=== PATIENT | female | born 1955 | race Caucasian/White ===

== ENCOUNTER 2020-08-21 16:13 | Inpatient (IN) | payer BC ==
[2020-08-21 17:11] LABS: CORONAVIRUS COVID-19 NAA POSITIVE (NEGATIVE)
[2020-08-21] MEDS ORDERED: Albuterol HFA 18 Gm Inhaler INH PRN (17:17)
--- NOTE | 2020-08-21 17:28 | EDM.PDOC ---
ED HPI GENERAL MEDICAL PROBLEM - General Chief Complaint: Respiratory Problem Time Seen by Provider: 08/21/20 16:56 Source of Information: Reports: Patient - History of Present Illness INITIAL COMMENTS - FREE TEXT/NARRATIVE: Jenn is 64 y/o female who comes to the ER with SOB. She has bee ill for the last 10-14 days with headache, cough, body aches. The last 2 days she has been much more ill and SOB. Her is currently admitted here at [facility] with +COVID. She has taken acetaminophen, but not really anything else. Middle Back Pain Score (Numeric/FACES): 4 - Related Data Allergies Allergy/AdvReac Type Severity Reaction Status Date / Time sulfamethoxazole Allergy Mouth Sores Verified 08/21/20 16:34 [From Bactrim] trimethoprim [From Bactrim] Allergy Mouth Sores Verified 08/21/20 16:34 Home Meds: Home Meds Ondansetron [Zofran ODT] 4 mg PO Q6H PRN 08/21/20 [History] Sertraline HCl [Zoloft] 100 mg PO DAILY 08/21/20 [History] Past Medical History Psychiatric History: Reports: Depression - Infectious Disease History Infectious Disease History: Reports: Novel Coronavirus Social & Family History - Tobacco Use Tobacco Use Status *Q: Never Tobacco User ED ROS GENERAL - Review of Systems Review Of Systems: See Below Constitutional: Reports: Fever, Chills, Weakness HEENT: Reports: No Symptoms Respiratory: Reports: Shortness of Breath, Cough Cardiovascular: Reports: No Symptoms Endocrine: Reports: No Symptoms GI/Abdominal: Reports: No Symptoms : Reports: No Symptoms Musculoskeletal: Reports: Other (Body Aches) Skin: Reports: No Symptoms Neurological: Reports: No Symptoms, Change in Speech Hematologic/Lymphatic: Reports: No Symptoms Immunologic: Reports: No Symptoms ED EXAM, GENERAL - Physical Exam Exam: See Below General Appearance: Alert, WD/WN, No Apparent Distress (Adult female.) Eye Exam: Bilateral Eye: PERRL Ears: Normal External Exam, Normal Canal, Hearing Grossly Normal, Normal TMs Nose: Normal Inspection, Normal Mucosa Throat/Mouth: Normal Inspection, Normal Lips, Normal Voice Head: Atraumatic, Normocephalic Neck: Normal Inspection, Supple Respiratory/Chest: No Respiratory Distress, Lungs Clear, Chest Non-Tender, Other (Note occasional hacky cough) Cardiovascular: Normal Peripheral Pulses, Regular Rate, Rhythm, No Edema GI/Abdominal: Normal Bowel Sounds, Soft (Female) Exam: Deferred Rectal (Female) Exam: Deferred Back Exam: Normal Inspection Extremities: Normal Inspection, Normal Range of Motion, Joint Swelling Neurological: Alert, Oriented, CN II-XII Intact, No Motor/Sensory Deficits Psychiatric: Normal Affect Skin Exam: Warm, Dry, Intact, Normal Color Lymphatic: No Adenopathy Course - Vital Signs Text/Narrative:: 1655 The patient was seen by the MANAGER NEWS. Labs done. 1719 +COVID noted. Additional labs ordered. Patient requiring 3 liters of oxygen to keep her sats at 91-92%. Will plan to admit to Acute Car. Ezequiel Kennedy CNP notified and will assume care of patient up on admission. VItal stable at this time. Albuterol MDI 2 puffs ordered. See Admission orders oer Ezequiel Kennedy CNP. Last Recorded V/S: Last Vital Signs Temp 37.0 C 08/21/20 16:13 Pulse 85 08/21/20 16:13 Resp 18 08/21/20 16:13 BP 131/65 08/21/20 16:13 Pulse Ox 94 L 08/21/20 16:15 - Orders/Labs/Meds Orders: Active Orders 24 hr Category Date Time Status EKG Documentation Completion [RC] STAT Care 08/21/20 17:16 Ordered Chest 1V Frontal [CR] Stat Exams 08/21/20 17:18 Ordered C-REACTIVE PROTEIN [CHEM] Stat Lab 08/21/20 17:16 Ordered CBC WITH AUTO DIFF [HEME] Stat Lab 08/21/20 17:16 Ordered COMPREHENSIVE METABOLIC PN,CMP [CHEM] Stat Lab 08/21/20 17:16 Ordered CULTURE BLOOD [BC] Stat Lab 08/21/20 17:16 Ordered D-DIMER QUANTITATIVE [COAG] Stat Lab 08/21/20 17:16 Ordered INR,PT,PROTHROMBIN TIME [COAG] Stat Lab 08/21/20 17:16 Ordered LACTATE SEPSIS W/ REFLEX [CHEM] Stat Lab 08/21/20 17:16 Ordered PTT,PARTIAL THROMBOPLSTIN TIME [COAG] Stat Lab 08/21/20 17:16 Ordered Albuterol [Ventolin HFA] Med 08/21/20 17:17 Ordered See Dose Instructions INH Q4H PRN Lactated Ringers @ 100 MLS/HR(1,000ml) Med 08/21/20 17:30 Ordered Lactated Ringers [Ringers, Lactated] 1,000 ml IV ASDIRECTED Sodium Chloride 0.9% [Saline Flush] Med 08/21/20 17:17 Ordered 10 ml FLUSH ASDIRECTED PRN Saline Lock Insert [OM.PC] Stat Oth 08/21/20 17:16 Ordered Medication Orders Albuterol (Albuterol Hfa 18 Gm Inhaler) 0 gm INH Q4H PRN PRN Reason: Shortness of Breath Lactated Ringer's (Ringers, Lactated) 1,000 mls @ 100 mls/hr IV ASDIRECTED JUSTYN Sodium Chloride (Sodium Chloride 0.9% 10 Ml Syringe) 10 ml FLUSH ASDIRECTED PRN PRN Reason: Keep Vein Open Labs: Laboratory Tests 08/21/20 Range/Units 16:27 Influenza Type A RNA Negative (NEGATIVE) Influenza Type B RNA Negative (NEGATIVE) SARS-CoV-2 RNA ([place]) Positive H (NEGATIVE) Meds: Medications Generic Name Dose Route Start Last Admin Trade Name Freq PRN Reason Stop Dose Admin Albuterol 0 gm 08/21/20 17:17 Albuterol Hfa 18 Gm Inhaler INH Q4H PRN Shortness of Breath Lactated Ringer's 1,000 mls @ 100 mls/hr 08/21/20 17:30 Ringers, Lactated IV ASDIRECTED JUSTYN Sodium Chloride 10 ml 08/21/20 17:17 Sodium Chloride 0.9% 10 Ml Syringe FLUSH ASDIRECTED PRN Keep Vein Open Departure - Departure Time of Disposition: 17:31 Disposition: Admitted As Inpatient 66 Condition: Good Clinical Impression: SARS-CoV-2 positive, Hypoxia - Discharge Information Sepsis Event Note (ED) - Evaluation Sepsis Screening Result: No Definite Risk - Focused Exam Vital Signs: Vital Signs Temp Pulse Resp BP Pulse Ox Pulse Ox 08/21/20 16:15 94 L 08/21/20 16:13 37.0 C 85 18 131/65 84 L - My Orders Last 24 Hours: My Active Orders 08/21/20 17:16 EKG Documentation Completion [RC] STAT C-REACTIVE PROTEIN [CHEM] Stat CBC WITH AUTO DIFF [HEME] Stat COMPREHENSIVE METABOLIC PN,CMP [CHEM] Stat CULTURE BLOOD [BC] Stat D-DIMER QUANTITATIVE [COAG] Stat INR,PT,PROTHROMBIN TIME [COAG] Stat LACTATE SEPSIS W/ REFLEX [CHEM] Stat PTT,PARTIAL THROMBOPLSTIN TIME [COAG] Stat Saline Lock Insert [OM.PC] Stat 08/21/20 17:17 Albuterol [Ventolin HFA] See Dose Instructions INH Q4H PRN Sodium Chloride 0.9% [Saline Flush] 10 ml FLUSH ASDIRECTED PRN 08/21/20 17:18 Chest 1V Frontal [CR] Stat 08/21/20 17:30 Lactated Ringers @ 100 MLS/HR(1,000ml) Lactated Ringers [Ringers, Lactated] 1,000 ml IV ASDIRECTED - Assessment/Plan Last 24 Hours: My Active Orders 08/21/20 17:16 EKG Documentation Completion [RC] STAT C-REACTIVE PROTEIN [CHEM] Stat CBC WITH AUTO DIFF [HEME] Stat COMPREHENSIVE METABOLIC PN,CMP [CHEM] Stat CULTURE BLOOD [BC] Stat D-DIMER QUANTITATIVE [COAG] Stat INR,PT,PROTHROMBIN TIME [COAG] Stat LACTATE SEPSIS W/ REFLEX [CHEM] Stat PTT,PARTIAL THROMBOPLSTIN TIME [COAG] Stat Saline Lock Insert [OM.PC] Stat 08/21/20 17:17 Albuterol [Ventolin HFA] See Dose Instructions INH Q4H PRN Sodium Chloride 0.9% [Saline Flush] 10 ml FLUSH ASDIRECTED PRN 08/21/20 17:18 Chest 1V Frontal [CR] Stat 08/21/20 17:30 Lactated Ringers @ 100 MLS/HR(1,000ml) Lactated Ringers [Ringers, Lactated] 1,000 ml IV ASDIRECTED Assessment:: 1)SARs-COVID19 Positive 2)Hypoxia Plan: -Admit to Acute Care, Ezequiel Kennedy CNP to admit patient
[2020-08-21] MEDS ORDERED: Lactated Ringers 1,000 ML IV SCH (17:30)
[2020-08-21 17:58] LABS: CHLORIDE,CL 105 mmol/L (98-107); SODIUM,NA 141 mmol/L (136-145)
[2020-08-21] MEDS ORDERED: Dexamethasone 4 MG/ML SDV IVPUSH SCH (18:00)
--- NOTE | 2020-08-21 18:01 | CR ---
[id number] RAD/RAD Chest PA or AP 1V EXAM: SINGLE VIEW CHEST. INDICATION: COVID SHORTNESS OF BREATH COMPARISON: NO PREVIOUS SIMILAR EXAM IS AVAILABLE FINDINGS: Extensive bilateral infiltrates are seen The cardiomediastinal contour is moderately enlarged IMPRESSION: EXTENSIVE BILATERAL PNEUMONIA Collin Whitaker MD 08/21/20 3802 Thank you for allowing us to participate in the care of your patient.
[2020-08-21 18:04] LABS: ANION GAP 14.8 mmol/L (5-15)
[2020-08-21] MEDS ORDERED: Ondansetron 4 MG/2 ML SDV IVPUSH PRN (18:40)
[2020-08-21] MEDS ORDERED: REMDESIVIR 100 MG in Sodium Chloride 0.9% 100 ML IV SCH (18:45)
[2020-08-21] MEDS ORDERED: Albuterol/Ipratropium 3.0-0.5 MG/3 ML Neb Soln NEB PRN (18:46)
[2020-08-21] MEDS ORDERED: Magnesium Hydroxide 400 MG/5 ML Susp 30 ML Cup PO PRN (18:46)
[2020-08-21] MEDS ORDERED: Polyethylene Glycol 3350 Powder 17 GM Packet PO PRN (18:46)
[2020-08-21] MEDS ORDERED: REMDESIVIR 200 MG in Sodium Chloride 0.9% 250 ML IV ONE (18:57)
[2020-08-21] MEDS: ALPRAZolam 0.5 MG Tab PO PRN (20:05)
[2020-08-21] MEDS: Enoxaparin 40 MG/0.4 ML Syringe SUBCUT SCH (20:17)
--- NOTE | 2020-08-21 21:24 | HP ---
CHIEF COMPLAINT: Shortness of breath. HISTORY OF PRESENT ILLNESS: This is a 64-year-old female patient with a past medical history of depression and anxiety, state that she started having body aches and chills a little over a week ago. The patient states over the past 2 days, she developed shortness of breath and significant fatigue. The patient has been in contact with another individual who was positive for COVID-19. The patient has not been vaccinated for COVID-19. The patient states she brought herself to the emergency room at [facility] today for further evaluation and care. The patient states she has only taken acetaminophen at home which has really not helped for her symptoms. The patient states she has been trying to stay well hydrated. However, she has been also feeling very nauseated. In the emergency room, the patient did test positive for COVID-19. On admission to the ER, the patient's oxygen saturation was 84% on room air. The patient was started on oxygen. The patient had a chest x-ray completed as well as IV fluid started. PAST MEDICAL HISTORY: Depression. PAST SURGICAL HISTORY: Denies. FAMILY HISTORY: Noncontributory. SOCIAL HISTORY: The patient does not smoke cigarettes. The patient denies any alcohol use. The patient does not use any illegal drugs. The patient is currently . The patient states she does try to exercise on a daily basis. REVIEW OF SYSTEMS: Constitutional: Chills and weakness. No fevers. Respiratory: Shortness of breath with dry cough. Cardiovascular: The patient states she has pain in her mid back that radiates to the chest wall. No palpitations. No leg swelling. Abdomen: The patient complains of nausea, but no vomiting. No diarrhea. The patient denies any abdominal pain. Extremities: No edema. Neurologic: Negative. Skin: Negative. PHYSICAL EXAMINATION: Vital Signs: Temperature 99.5, pulse 77, blood pressure 139/62, respiratory rate 17, and oxygen saturation 92% on 3 L. Respiratory: Lungs are diminished throughout and coarse. No wheezing. Cardiovascular: Regular rate and rhythm. No murmur. Abdomen: Soft and nontender. Bowel sounds are hypoactive x4. No hepatosplenomegaly. Extremities: No edema. Neurologic: The patient is alert. The patient does not appear to be in any acute distress. No focal neurological deficits. General: The patient is alert. The patient does not appear to be in any acute distress. The patient is cooperative. LABORATORY WORK: 1. CBC: White blood cell count 4.6, hemoglobin 11.1, hematocrit 31.9, and platelets 197,000. 2. PT/INR 10.8/1.0. 3. APTT 31.0. 4. D-dimer 1.05. 5. BMP: Sodium 141, potassium 3.8, chloride 105, CO2 of 25, anion gap 14.8, BUN 22, creatinine 1.0, GFR 56, glucose 116, calcium 8.7, bilirubin 0.5, AST 41, ALT 29, alkaline phosphatase 52, protein 7.0, and albumin 2.9. 6. Lactic acid 0.7. 7. Ferritin 1128. 8. LDH 368. 9. Troponin 8. 10.CK 34. Imaging studies: Chest x-ray shows extensive bilateral lower lobe pneumonia. ASSESSMENT: 1. Acute respiratory failure with hypoxia secondary to COVID-19. 2. Viral pneumonia secondary to COVID-19. 3. Major depressive disorder, recurrent, mild episode. 4. Clinical dehydration. PLAN: This is a 64-year-old female patient with a past medical history of depression admitted to the acute care floor at [facility] for the above diagnoses. We will stop IV fluids from the ER. The patient will be started on Remdesivir IV as well as Decadron IV given her extensive pneumonia and nausea. We discussed cough and deep breathing exercises, incentive spirometry. The patient will also be started on vitamin D, vitamin C, and zinc. We will wean oxygen for saturation 90% or greater. The patient's daughter, Vani, was updated with the patient's current status. The patient wishes to be a full code. The patient does not wish to be transferred to a higher level of care should the need arise. Recheck laboratory work tomorrow morning. TB: 08/21/2020 20:53:21 MODL: 08/21/2020 21:14:50 /[id number]
[2020-08-22] MEDS: Vitamin B Complex Tab PO SCH (08:18)
[2020-08-22] MEDS: Ascorbic Acid 500 MG Tab PO SCH (08:18)
[2020-08-22] MEDS: Cholecalciferol (Vitamin D3) 25 MCG Tab PO SCH (08:18)
[2020-08-22] MEDS: Sertraline 100 MG Tab PO SCH (08:18)
[2020-08-22] MEDS: Zinc Sulfate 220 MG Cap PO SCH (08:18)
[2020-08-22] MEDS: Sodium Chloride 0.9% 10 ML Syringe FLUSH PRN (08:21)
[2020-08-22 08:28] LABS: CHLORIDE,CL 107 mmol/L (98-107); SODIUM,NA 142 mmol/L (136-145)
[2020-08-22] MEDS: Acetaminophen 325 MG Tab PO PRN ×2 (12:02→20:40)
--- NOTE | 2020-08-22 12:06 | PN ---
Progress Note for RACHAEL COLVIN Date: 08/22/2020 Room #: [facility] CHIEF COMPLAINT: Shortness of breath. SUBJECTIVE: Hospital day #2 for a 64-year-old female patient who was admitted yesterday for significant COVID-19 pneumonia, shortness of breath, and fatigue. The patient states she is not feeling any better today in regard to her fatigue, however, she states her shortness of breath seems to be improving. The patient states she has an intermittent dry cough. She continues to complain of chest discomfort with deep breathing. The patient denies any headaches, dizziness, or lightheadedness. The patient has not had any palpitations. No leg swelling. The patient denies any fevers or chills. No abdominal pain. The patient denies any nausea, vomiting, or diarrhea. The patient is trying to stay well hydrated with good p.o. fluid intake. OBJECTIVE: Vital Signs: Temperature 99.4, pulse 74, blood pressure 129/76, respiratory rate 16, oxygen saturation 93% on 3 L. Skin: Intact, warm, and dry. Respiratory: Lungs are decreased throughout and coarse. No wheezing. Cardiovascular: Regular rate and rhythm. No murmur. Abdomen: Soft, nontender. Bowel sounds are hypoactive x4. Extremities: No edema. Neurological: The patient is alert. The patient is not in any acute distress. No focal neurological deficits. LABORATORY STUDIES: 1. CBC: White blood cell count 2.9, hemoglobin 10.7, hematocrit 31.3, platelet count 212. 2. CMP: Sodium 142, potassium 4.0, chloride 107, CO2 of 23, anion gap 16.0, BUN 19, creatinine 0.8, GFR greater than 60, glucose 141, calcium 8.8, AST 35, ALT 27, alkaline phosphatase 49, protein 6.8, albumin 2.6. 3. Urinalysis does not show any UTI. ASSESSMENT: 1. Acute respiratory failure with hypoxia secondary to COVID-19. 2. Viral pneumonia secondary to COVID-19. 3. Major depressive disorder, recurrent, mild episode. 4. Clinical dehydration. PLAN: 64-year-old female patient was admitted with a past medical history of depression. Admitted to the acute care floor at [facility] for the above diagnosis. Continue on IV Remdesivir and IV dexamethasone given the extensive pneumonia. Encourage the patient to ambulate in the room. Continue all other medications the same. The patient is a code 1. The patient does not wish to transfer to a higher level of care should the need arise. Recheck laboratory work tomorrow morning. TB: 08/22/2020 10:42:19 MODL: 08/22/2020 11:56:59 /[id number] MTDD
[2020-08-22] MEDS ORDERED: Dexamethasone 4 MG/ML SDV IVPUSH SCH (20:00)
[2020-08-22] MEDS: Enoxaparin 40 MG/0.4 ML Syringe SUBCUT SCH (20:43)
[2020-08-22] MEDS: REMDESIVIR 100 MG in Sodium Chloride 0.9% 100 ML IV SCH (20:46)
[2020-08-23 07:28] LABS: CHLORIDE,CL 108 mmol/L (98-107); SODIUM,NA 144 mmol/L (136-145)
[2020-08-23 07:39] LABS: ANION GAP 15.3 mmol/L (5-15)
[2020-08-23] MEDS: Sertraline 100 MG Tab PO SCH (08:37)
[2020-08-23] MEDS: Zinc Sulfate 220 MG Cap PO SCH (08:37)
[2020-08-23] MEDS: Ascorbic Acid 500 MG Tab PO SCH (08:37)
[2020-08-23] MEDS: Cholecalciferol (Vitamin D3) 25 MCG Tab PO SCH (08:37)
[2020-08-23] MEDS: Vitamin B Complex Tab PO SCH (08:37)
--- NOTE | 2020-08-23 10:17 | PN ---
Progress Note for RACHAEL COLVIN Date: 08/23/2020 Room #: VM.209 SUBJECTIVE: This is hospital day #3 on a 64-year-old admitted with a coronavirus disease 2019 infection and pneumonia. The patient had been sick a couple of weeks, probably likely in mid July with chills and aches. They came and went, and then her got hospitalized with coronavirus disease 2019 and pancreatitis. He has been in the hospital it sounds like about 6 days, then the patient over the weekend began having chest and back pain, and shortness of breath. Came into the ER for evaluation. Chest x-ray was consistent with a coronavirus disease 2019 pneumonia. The patient still has some back pain but is not having chest pain. She was placed on oxygen and her breathing is better. She was given Remdesivir and dexamethasone, and vitamins and Lovenox. Oxygen requirements did go up to 5 L, but are back down to 4 today. She is not having any vomiting. No diarrhea. She has been eating 50% to 100% of her meals. She did get some IV fluids. OBJECTIVE: Vital Signs: Her temperature 97.1, pulse 61, blood pressure 121/59, respiratory rate 16, O2 of 97% on 4 L. Her T-max during her stay was 99.5. General: She is in no acute distress. Heart: Regular rate and rhythm. S1, S2 without murmur. Lungs: Sounds are decreased throughout with rhonchi, but no expiratory wheezes. Abdomen: Nondistended, nontender. Extremities: Warm, dry. No edema. Mental Status: Alert and orientated x3. LABORATORY DATA: Lab work today did show her white count at 4.6; hemoglobin 11.2, stable; platelets 252. Sodium 144, potassium 4.3, chloride 108, bicarb 25, BUN 27, creatinine 0.9, glucose 142, calcium 8.9. ASSESSMENT: 1. Coronavirus disease 2019 pneumonia. 2. Acute hypoxic respiratory failure secondary to coronavirus disease 2019 pneumonia. 3. History of depression. 4. Dehydration, resolved. 5. Severe hyperlipidemia, not currently on treatments. PLAN: The patient will continue acute cares with the IV Remdesivir. She is completing day 3/5 today. She will continue IV dexamethasone, but I will move it up to the afternoon instead of bedtime as it interferes with sleep. Given her prolonged illness, I will start her on IV Rocephin for secondary bacterial infections. We will continue oxygen weaning as able. She will be on continuous pulse oximetry for this and also telemetry. I did encourage her to do prone positioning to be up and moving in the room and doing her incentive spirometry. We will discontinue IV fluids. No lab work will need to be repeated tomorrow. Anticipate that the patient will likely be inpatient until she finishes Remdesivir on . We will see how she does each day. She is aware that she may have to go home on oxygen. MKA: 08/23/2020 08:34:14 MODL: 08/23/2020 10:10:31 /[id number]
[2020-08-23] MEDS: cefTRIAXone 1 GM Vial IVPUSH SCH (10:41)
[2020-08-23] MEDS: Dexamethasone 4 MG/ML SDV IVPUSH SCH (15:09)
[2020-08-23] MEDS: Sodium Chloride 0.9% 10 ML Syringe FLUSH PRN (20:07)
[2020-08-23] MEDS: REMDESIVIR 100 MG in Sodium Chloride 0.9% 100 ML IV SCH (20:08)
[2020-08-23] MEDS: Enoxaparin 40 MG/0.4 ML Syringe SUBCUT SCH (20:12)
[2020-08-23] MEDS: Acetaminophen 325 MG Tab PO PRN (21:46)
[2020-08-23] MEDS: ALPRAZolam 0.5 MG Tab PO PRN (21:47)
[2020-08-24] MEDS: Dexamethasone 4 MG/ML SDV IVPUSH SCH ×2 (08:13→11:26)
[2020-08-24] MEDS: cefTRIAXone 1 GM Vial IVPUSH SCH (08:14)
[2020-08-24] MEDS: Vitamin B Complex Tab PO SCH (08:15)
[2020-08-24] MEDS: Zinc Sulfate 220 MG Cap PO SCH (08:15)
[2020-08-24] MEDS: Cholecalciferol (Vitamin D3) 25 MCG Tab PO SCH (08:16)
[2020-08-24] MEDS: Ascorbic Acid 500 MG Tab PO SCH (08:16)
[2020-08-24] MEDS: Sertraline 100 MG Tab PO SCH (08:17)
--- NOTE | 2020-08-24 08:34 | PCM.EKG ---
#1 Interpretation EKG Date: 08/22/20 Time: 16:00 Rhythm: NSR Rate (Beats/Min): 67 [place]: Normal P-Wave: Present QRS: Normal ST-T: Normal QT: Normal TX/PQ Interval: 0.13 Comparison: No Change EKG Interpretation Comments: NSR; No ST-T changes
--- NOTE | 2020-08-24 19:33 | PN ---
Progress Note for RACHAEL COLVIN Date: 08/24/2020 Room #: VM.209 SUBJECTIVE: This is hospital day #4 on a 64-year-old admitted with a COVID-19 infection and pneumonia. She had been sick a couple of weeks previously. She feels like she has improved over the last 24 hours. She is still coughing some, but her breathing is better. She is down to 3 L. She has been up in her room and using the bathroom. She has not had any diarrhea. She has been eating well. She has been afebrile. She was started on IV Rocephin yesterday for possible secondary infection. OBJECTIVE: Vital Signs: Her oxygen was 94 on 3 L, 97 on 4 L this morning; temp 99 which is her T-max in 24 hours; pulse 62; blood pressure 128/72; respiratory rate 18. General: She is in no acute distress. Heart: Regular rate and rhythm. S1, S2 without murmur. Lungs: Lung sounds are clear to auscultation throughout on the left lung. Her right lung has some faint crackles, but no expiratory wheezing. Abdomen: Nondistended, nontender. Extremities: Warm and dry. No edema. Mental Status: Alert and orientated x3. ASSESSMENT AND PLAN: 1. Coronavirus disease 2019 pneumonia, acute hypoxic respiratory failure secondary to coronavirus disease 2019 pneumonia. 2. Concern for secondary bacterial infection due to prolonged illness, on day #2 of IV Rocephin. 3. History of depression. 4. Mild dehydration, resolved. 5. Severe hyperlipidemia, not currently on treatment. The patient will continue acute care. She will complete day #5 of remdesivir today. She will continue IV dexamethasone. We will move the dose up to this morning. It did not seem to improve her sleep last night to move into the afternoon. We will continue the IV Rocephin. We will continue to wean oxygen as able. She will be on incentive spirometry. Again, encouraged proning for her respiration. She has not used any nebulizers, but clinically she has no chronic lung disease prior to this. For DVT prophylaxis, she is on the Lovenox. Did discuss with her the potential for outpatient followup with Pulmonary at some point. Even though she is clinically improving, she will likely need a chest CT. MKA: 08/24/2020 09:55:39 MODL: 08/24/2020 19:26:40 /[id number]
[2020-08-24] MEDS: REMDESIVIR 100 MG in Sodium Chloride 0.9% 100 ML IV SCH (20:18)
[2020-08-24] MEDS: Sodium Chloride 0.9% 10 ML Syringe FLUSH PRN (20:18)
[2020-08-24] MEDS: Enoxaparin 40 MG/0.4 ML Syringe SUBCUT SCH (20:20)
[2020-08-24] MEDS: ALPRAZolam 0.5 MG Tab PO PRN (22:15)
[2020-08-24] MEDS: Acetaminophen 325 MG Tab PO PRN (22:15)
[2020-08-25] MEDS: Vitamin B Complex Tab PO SCH (08:11)
[2020-08-25] MEDS: cefTRIAXone 1 GM Vial IVPUSH SCH (08:11)
[2020-08-25] MEDS: Sertraline 100 MG Tab PO SCH (08:11)
[2020-08-25] MEDS: Zinc Sulfate 220 MG Cap PO SCH (08:11)
[2020-08-25] MEDS: Cholecalciferol (Vitamin D3) 25 MCG Tab PO SCH (08:11)
[2020-08-25] MEDS: Ascorbic Acid 500 MG Tab PO SCH (08:11)
[2020-08-25] MEDS: Sodium Chloride 0.9% 10 ML Syringe FLUSH PRN (08:13)
[2020-08-25] MEDS ORDERED: Iopamidol 612 MG/ML 100 ML Bottle IVPUSH ONE (09:18)
[2020-08-25] MEDS: Dexamethasone 4 MG/ML SDV IVPUSH SCH (10:47)
[2020-08-25] MEDS ORDERED: REMDESIVIR 100 MG in Sodium Chloride 0.9% 100 ML IV SCH (12:00)
--- NOTE | 2020-08-25 15:55 | DISCH ---
PRIMARY DISCHARGE DIAGNOSES: 1. COVID-19 pneumonia. 2. Acute hypoxic respiratory failure secondary to COVID-19 pneumonia. 3. Concern for secondary bacterial infection, on IV Rocephin day #3. 4. History of depression. 5. Mild dehydration due to acute illness, resolved. 6. Severe hyperlipidemia, not currently on any treatments. REASON FOR ADMISSION: On the date of admission, this 64-year-old female who had video visits through the clinic and had reported some symptoms on and off COVID from around 08/12/2020. Her had already been admitted and unfortunately her condition continued to worsen to the point where she was having difficulty breathing and she came in and was admitted. Chest x-ray was showing bilateral infiltrates consistent with COVID pneumonia, and she was requiring up to 5 L of oxygen. The patient was started on IV remdesivir as well as IV Decadron and the COVID vitamins and her condition did gradually improve, especially yesterday, she felt like she was really turning the corner. Oxygen had been weaned down to 3 L and now 2 L today. The patient states she still gets very winded in her room like trying to go to the bathroom, but she was doing that with her oxygen off, so her concerns for being home are which is limited endurance and trying to also care for her who is recovering as well. The patient had no fevers in the last 24 hours. She was tolerating a diet. She was having bowel movements. DISCHARGE PHYSICAL EXAMINATION: Vital Signs: Discharging vitals, temperature 98.9, pulse 68, blood pressure 130/60, respiratory rate 18, and O2 of 93% on 2 L. The patient was actually 87 on room air at rest and 86 on room air with walking. She went up to 88 on 1 L with walking and up to 92 on 2 L with walking and even at rest. Heart: Regular rate and rhythm without murmur. Lungs: Lung sounds were clear to auscultation through the left lung. She had some mild crackles in the right base. No expiratory wheezing. She never used any nebs. Abdomen: Nondistended, nontender. Extremities: Warm and dry. No edema. No calf tenderness. Mental Status: Alert and orientated x3. Skin: She was not pale. Psychiatric: She was not depressed or anxious. DISCHARGE PLANS AND INSTRUCTIONS: The patient will follow up with myself in the clinic on 09/08/2020 for post-hospital followup. No lab work is due. She will be home on 2 L at all times. She will have her home COVID monitoring kit through [facility]. Cough and deep breathing encouraged. She did have a CT chest done prior to discharge with results pending. She will be on Ceftin twice daily for another 3 days starting tomorrow. She completed her remdesivir, her dexamethasone will be oral 6 mg daily for 5 more days, and baby aspirin 81 mg daily with food for 2 weeks if she can tolerate it to prevent blood clots. The patient was treated with Lovenox for DVT prophylaxis while she was here. LABORATORY DATA: Discharging labs did show her hemoglobin at 10.8, which was stable; white count 6.4; platelets 238. Sodium 146, potassium 4, chloride 111, BUN 24, creatinine 1, bicarb 26, calcium 8.4. Greater than 30 minutes spent on this discharge process. MKA: 08/25/2020 15:05:46 MODL: 08/25/2020 15:45:26 /[id number]
--- NOTE | 2020-08-25 16:23 | CT ---
[id number] CT/CTA Chest Exam: CTA Chest Clinical Data: HYPOXIA COMPARISON: CORRELATION IS MADE WITH THE CHEST RADIOGRAPH OF AUGUST 21, 2020 FINDINGS: Extensive bilateral infiltrates consistent with pneumonia are seen There are no pulmonary emboli There is no mediastinal mass or adenopathy IMPRESSION: NO PULMONARY EMBOLI EXTENSIVE PNEUMONIA Collin Whitaker MD 08/25/20 [phone] Thank you for allowing us to participate in the care of your patient.
== END 2020-08-25 15:45 | disposition home or self-care (01) | DRG 137 ==
LOC: VM.ED 16:13 → VM.MS 17:28
PROVIDERS: ADMIT Nurse Practitioner Family; ATTEND Internal Medicine
PROC: 8E0ZXY6 Isolation (ICD-10-PCS; principal; 2020-08-21)
PROC: XW033E5 Introduction of Remdesivir Anti-infective into Peripheral Vein, Percutaneous Approach, New Technology Group 5 (ICD-10-PCS; 2020-08-21)
DX: U07.1 COVID-19 (principal); J12.82 Pneumonia due to coronavirus disease 2019; J96.01 Acute respiratory failure with hypoxia; E86.0 Dehydration; E78.5 Hyperlipidemia, unspecified; F41.9 Anxiety disorder, unspecified; F33.0 Major depressive disorder, recurrent, mild; Z88.2 Allergy status to sulfonamides; Z88.1 Allergy status to other antibiotic agents; Z79.899 Other long term (current) drug therapy
CPT/HCPCS: 0240U; 36415; 71045; 71275; 80048; 80053; 81001; 82248; 82550; 82728; 83605; 83615; 84145; 84484; 85025; 85379; 85610; 85730; 86140; 87040; 93005; 99284; 99285-25; A9270-GY; J0696; J1100; J1650; J7050; J7120; Q9967

== ENCOUNTER 2023-06-14 11:55 | Emergency (ER) | payer MEDICARE, OTHER ==
[2023-06-14] MEDS: Sodium Chloride 0.9% 1,000 ML IV SCH (12:34)
[2023-06-14] MEDS: cefTRIAXone 1 GM Vial IVPUSH ONE (12:34)
[2023-06-14] MEDS: Metoclopramide 10 MG/2 ML SDV IVPUSH ONE (12:34)
== END 2023-06-14 13:34 | disposition home or self-care (01) ==
LOC: VM.ED 11:55
DX: R22.9 Localized swelling, mass and lump, unspecified (principal); Z88.2 Allergy status to sulfonamides; Z88.8 Allergy status to other drugs, medicaments and biological substances; Z79.899 Other long term (current) drug therapy; Z86.16 Personal history of COVID-19
CPT/HCPCS: 96361; 96374; 96375; 99283; 99283-25; J0696; J2765; J7030